=== PATIENT | female | born 1990 | race Caucasian/White ===

== ENCOUNTER 2017-10-31 13:29 | Emergency (ER) | payer BC ==
[2017-10-31 13:52] VITALS: BP 131/71
--- NOTE | 2017-10-31 14:44 | ER Document Report ---
ED General - General Chief Complaint: Chest Pressure Stated Complaint: CHEST PAIN Time Seen by Provider: 10/31/17 14:23 Notes: 26-year-old female PMH anxiety/panic attacks here with complaints of chest tightness, feeling anxious/panicky, impending sense of doom that started early this morning. She went and worked out in the gym shortly thereafter and did not have worsening of the symptoms. Pain is not worse with exertion or breathing. She did not try taking anything for the symptoms. She goes to therapy for her severe anxiety/panic attacks and states this felt like an anxiety attack. She went to the urgent care across the street and was told that everything looked fine but that she was recommended to come over here to the ED. TRAVEL OUTSIDE OF THE [place] IN LAST 30 DAYS: No - Related Data Allergies/Adverse Reactions: No Known Allergies Allergy (Verified 10/31/17 13:30) Past Medical History - Social History Smoking Status: Current Some Day Smoker Frequency of alcohol use: Social Drug Abuse: Marijuana Family History: CAD Patient has suicidal ideation: No Patient has homicidal ideation: No Renal/ Medical History: Denies: Hx Peritoneal Dialysis Review of Systems - Review of Systems Notes: See history of present illness for pertinent positive review of systems; otherwise all review of systems have been reviewed and are negative Physical Exam - Vital signs Vitals: Temp Pulse Resp BP Pulse Ox 98.9 F 62 18 131/71 H 99 10/31/17 13:50 10/31/17 13:50 10/31/17 13:50 10/31/17 13:50 10/31/17 13:50 - Notes Notes: PHYSICAL EXAMINATION: GENERAL: Well-appearing and in no acute distress. HEAD: Atraumatic, normocephalic. EYES: Pupils equal round and reactive to light, extraocular movements intact, sclera anicteric, conjunctiva are normal. ENT: nares patent, oropharynx clear without exudates. Moist mucous membranes. NECK: Normal range of motion, supple without lymphadenopathy LUNGS: CTAB and equal. No wheezes rales or rhonchi. HEART: Regular rate and rhythm without murmurs ABDOMEN: Soft, no tenderness. No facial grimacing/wincing upon palpation. No guarding, no rebound. EXTREMITIES: Normal range of motion, no pitting edema. No cyanosis. NEUROLOGICAL: Cranial nerves grossly intact. Normal sensory/motor exams. PSYCH: Appears very anxious SKIN: Warm, Dry, normal turgor, no rashes or lesions noted Course - Re-evaluation Re-evalutation: 10/31/17 14:42 MEDICAL DECISION MAKING: Concern for anxiety/panic attacks Low clinical suspicion for acute emergent pathology i.e. ACS/PE Did offer diagnostic workup however patient declines and would like to leave Discussed with her she is more than welcome to return and we are happy to see her if she changes mind She also declines prescription for anxiety medication to be used as needed Patient understands and agrees to the plan of care - Vital Signs Vital signs: Temp Pulse Resp BP Pulse Ox 98.9 F 62 18 131/71 H 99 10/31/17 13:50 10/31/17 13:50 10/31/17 13:50 10/31/17 13:50 10/31/17 13:50 Discharge - Discharge Clinical Impression: Chest tightness Condition: Good Disposition: HOME, SELF-CARE Additional Instructions: You were seen in the emergency department at [facility]. You declined additional testing including blood work and x-rays. Please followup with your primary physician in the next few days for further management/ evaluation. Please return to the emergency department for worsening of symptoms or any symptom that you deem to be concerning or life-threatening. Thank you for allowing us to be part of your care.
--- NOTE | 2017-10-31 20:16 | EKG REPORT ---
SEVERITY:- OTHERWISE NORMAL ECG - SINUS ARRHYTHMIA, RATE 58-80 : Confirmed by: Isabela Solorzano 31-Oct-2017 20:15:36
== END 2017-10-31 14:41 | disposition home or self-care (01) ==
LOC: ER 13:29
DX: F41.0 Panic disorder [episodic paroxysmal anxiety] (principal); F41.9 Anxiety disorder, unspecified; R07.89 Other chest pain; F12.10 Cannabis abuse, uncomplicated; F17.200 Nicotine dependence, unspecified, uncomplicated; Z82.49 Family history of ischemic heart disease and other diseases of the circulatory system
CPT/HCPCS: 93005; 93010; 99283